=== PATIENT | male | born 1985 | race Caucasian/White ===

== ENCOUNTER 2023-01-12 14:32 | Emergency (ER) | payer MEDICAID ==
[2023-01-12] VITALS (21 sets, daily range): BP systolic 100–132; BP diastolic 59–89
[~2023-01-12] VITALS: Ht 172.7 cm; Wt 61.2 kg
[2023-01-12] MEDS ORDERED: EPIPEN 2-P0.3 MG/0.3 IJ (19:08)
[2023-01-12] MEDS ORDERED: PREDNISONE20 MG PO (19:08)
[2023-01-12] MEDS ORDERED: ZYRTEC10 MG PO (19:08)
== END 2023-01-12 19:30 | disposition home or self-care (01) ==
LOC: ED 14:32
DX: T78.1XXA Other adverse food reactions, not elsewhere classified, initial encounter (principal); X58.XXXA Exposure to other specified factors, initial encounter; Z91.010 Allergy to peanuts

== ENCOUNTER 2023-12-08 19:59 | Emergency (ER) | payer OTHER ==
[~2023-12-08] VITALS: Ht 172.7 cm; Wt 61.0 kg
[~2023-12-08 19:59] MED LIST: ATIVAN; ATIVAN1 MG PO; ATORVASTATIN; EPIPEN 2-P0.3 MG/0.3 IJ; LIPITOR20 M1 PO; OLANZAPINE; PREDNISONE20 MG PO; ZOLOFT; ZYRTEC10 MG PO
[2023-12-08] MEDS ORDERED: TETRACAINE HCL 0.5 %/4 ML SOL OS ONE (20:05)
[2023-12-08] MEDS ORDERED: FLUORESCEIN SODIUM 1 MG EA OS ONE (20:05)
[2023-12-08] MEDS ORDERED: ACETAMINOPHEN 500 MG TAB PO ONE (20:05)
[2023-12-08 23:00] VITALS: BP 124/74
== END 2023-12-08 23:00 | disposition home or self-care (01) ==
LOC: ED 19:59
DX: S00.12XA Contusion of left eyelid and periocular area, initial encounter (principal); H11.32 Conjunctival hemorrhage, left eye; Y04.0XXA Assault by unarmed brawl or fight, initial encounter

== ENCOUNTER 2023-12-23 12:04 | Observation (INO) | payer OTHER ==
[~2023-12-23] VITALS: Ht 172.7 cm; Wt 62.2 kg
[2023-12-23 12:38] LABS: BASO% 0.1 % (0-3); EOS% 0.1 % (0-8); HEMATOCRIT 45.4 % (39.0-50.0); HEMOGLOBIN 15.5 g/dl (14.0-18.0); IMMATURE GRANULOCYTES 0.2 % (0.0-5.0); LYMPH% 14.1 % (15-41); MEAN CELL VOLUME 83.9 fL CALC (80.0-100.0); MEAN CORPUSCULAR HGB 28.7 pG CALC (26.0-32.0); MEAN CORPUSCULAR HGB CONC 34.1 g/dL CAL (32.0-36.0); MONO% 9.3 % (2-13); NEUT# 12.47 thou/uL (1.82-7.42); NEUT% 76.2 % (42-76); RED BLOOD COUNT 5.41 mill/uL (4.70-6.10); RED CELL DISTRI WIDTH 13.1 % (11.5-15.5)
[2023-12-23 13:14] LABS: ALKALINE PHOSPHATASE 49 u/l (38-126); CHLORIDE 100 mmol/l (95-108); ETHYL ALCOHOL 0 mg/dl (0-30); POTASSIUM 4.9 mmol/l (3.5-5.1); SODIUM 138 mmol/l (137-146)
[2023-12-23 13:25] LABS: ALBUMIN 5.6 g/dL (3.2-5.0); ANION GAP 22 (6-22 (CALC)); BILIRUBIN, TOTAL 1.1 mg/dL (0.2-1.3); BUN 45 mg/dL (9-20); BUN/CREATININE RATIO 18 (12-20 (CALC)); CARBON DIOXIDE 21 mmol/l (22-30); CREATININE 2.5 mg/dL (0.7-1.3); ESTIMATED GFR 32 ML/MIN (>=90 (CALC)); SGOT/AST 27 u/l (17-59); TOTAL PROTEIN 9.5 g/dL (6.3-8.2)
[2023-12-23] MEDS ORDERED: SODIUM CHLORIDE 0.9% 1,000 ML IV ONE ×2 (13:40)
[2023-12-23] MEDS ORDERED: ACETAMINOPHEN 325 MG/TAB PO PRN (14:15)
[2023-12-23] MEDS ORDERED: SODIUM CHLORIDE 0.9% 1,000 ML IV PRN (14:15)
[2023-12-23] MEDS ORDERED: ZOLOFT50 MG PO (14:15)
[2023-12-23] MEDS ORDERED: MAGNESIUM HYDROXIDE 30 ML UDC PO PRN (14:15)
[2023-12-23] MEDS ORDERED: ZYPREXA PO (14:16)
[2023-12-23] MEDS ORDERED: ATIVAN1 M1 PO (14:16)
[2023-12-23 15:24] VITALS: BP 111/64
[2023-12-23] MEDS ORDERED: SERTRALINE HCL 50 MG/TAB PO SCH (17:00)
[2023-12-23 18:00] LABS: URINE BILIRUBIN - DIPSTICK Negative (NEGATIVE); URINE BLOOD DIPSTICK Negative (NEGATIVE); URINE COLOR Yellow; URINE GLUCOSE - DIPSTICK Negative (NEGATIVE); URINE KETONE Trace mg/dL (NEGATIVE); URINE LEUK ESTERASE Negative (NEGATIVE); URINE NITRITE - DIPSTICK Negative (Negative); URINE PROTEIN - DIPSTICK 30 mg/dL (NEG-TRACE); URINE SPECIFIC GRAVITY 1.015; URINE UROBILINOGEN - DIPSTICK 0.2 E.U./dL (0.2)
[2023-12-23 18:09] LABS: URINE BACTERIA FEW hpf; URINE RBC 0-2 RBC/hpf (0-5); URINE WBC 0-2 WBC/hpf (0-5)
[2023-12-23 18:10] LABS: URINE HYALINE CAST MODERATE lpf (NONE-RARE)
[2023-12-23] MEDS ORDERED: OLANZapine 5 MG/TAB PO SCH (21:00)
[2023-12-23] MEDS ORDERED: LORazepam 1 MG/TAB PO SCH (21:00)
[2023-12-23] MEDS ORDERED: Heparin SODIUM (Porcine) 5,000 UNITS/ML SDV SC SCH (22:00)
[2023-12-24 05:13] VITALS: BP 120/76
[2023-12-24 05:51] LABS: BASO% 0.4 % (0-3); EOS% 0.9 % (0-8); IMMATURE GRANULOCYTES 0.2 % (0.0-5.0); LYMPH% 30.9 % (15-41); MEAN CELL VOLUME 85.5 fL CALC (80.0-100.0); MEAN CORPUSCULAR HGB 29.3 pG CALC (26.0-32.0); MEAN CORPUSCULAR HGB CONC 34.3 g/dL CAL (32.0-36.0); MONO% 10.4 % (2-13); NEUT# 5.44 thou/uL (1.82-7.42); NEUT% 57.2 % (42-76); RED BLOOD COUNT 4.47 mill/uL (4.70-6.10)
[2023-12-24 05:57] LABS: BILIRUBIN, TOTAL 0.8 mg/dL (0.2-1.3); HEMATOCRIT 38.2 % (39.0-50.0); HEMOGLOBIN 13.1 g/dl (14.0-18.0); POTASSIUM 4.5 mmol/l (3.5-5.1)
[2023-12-24 06:01] LABS: ALBUMIN 3.9 g/dL (3.2-5.0); TOTAL PROTEIN 6.4 g/dL (6.3-8.2)
[2023-12-24 08:43] VITALS: BP 145/79
[2023-12-24] MEDS ORDERED: OLANZapine 5 MG/TAB PO SCH (09:00)
== END 2023-12-24 10:23 ==
LOC: ED 12:04 → ED-I 13:12 → ED 13:54 → MS2 13:55
PROVIDERS: Family Medicine; Nurse Practitioner Family; ADMIT Internal Medicine; ATTEND Internal Medicine
DX: N17.9 Acute kidney failure, unspecified (principal); R45.851 Suicidal ideations; F15.10 Other stimulant abuse, uncomplicated; F31.9 Bipolar disorder, unspecified; F20.9 Schizophrenia, unspecified; F41.9 Anxiety disorder, unspecified; Z20.822 Contact with and (suspected) exposure to COVID-19
CPT/HCPCS: G0378

== ENCOUNTER 2024-01-04 07:58 | Day surgery (SDC) | payer OTHER ==
[~2024-01-04] VITALS: Ht 172.7 cm; Wt 59.0 kg
[~2024-01-04 07:58] MED LIST changes: +ATIVAN1 M1 PO; +ATORVASTATIN CA20 MG PO; +ZOLOFT50 MG PO; +ZYPREXA PO
[2024-01-04] MEDS ORDERED: FAMOTIDINE 10MG/ML 2ML SDV IV ONE (08:02)
[2024-01-04] MEDS ORDERED: ceFAZolin Sodium 2 GM/VIAL SDV ONE (08:17)
[2024-01-04] MEDS ORDERED: SODIUM CHLORIDE 0.9% 100 ML IV ONE (08:17)
[2024-01-04] MEDS ORDERED: LIDOCAINE HCL 1% (10MG/ML) 100 MG/10 ML MDV ONE (08:40)
[2024-01-04] MEDS ORDERED: LIDOcaine HCl 1% (Local Anesth.) 20 ML VIAL ONE (08:40)
[2024-01-04] MEDS ORDERED: ACETAMINOPHEN 100 ML IV ONE (10:07)
[2024-01-04] MEDS ORDERED: KETOROLAC TROMETHAMINE 30 MG/ML SDV ONE (10:07)
[2024-01-04 10:47] VITALS: BP 150/90
[2024-01-04] MEDS ORDERED: PROPOFOL 200 MG/20 ML VIAL IV ONE (15:10)
[2024-01-04] MEDS ORDERED: GLYCOPYRROLATE 0.2 MG/ML IV ONE (15:10)
== END 2024-01-04 10:55 | disposition home or self-care (01) ==
LOC: ORM 07:58
PROVIDERS: ATTEND Surgery
DX: D17.23 Benign lipomatous neoplasm of skin and subcutaneous tissue of right leg (principal)
CPT/HCPCS: J0131; J0690